=== PATIENT | male | born 1980 | race American Indian/Alaskan Native ===

== ENCOUNTER 2021-12-11 10:19 | Outpatient (CLI) | payer OTHER ==
--- NOTE | 2021-12-11 11:10 | XRay Report ---
Lumbar spine 3 views INDICATION: Back pain FINDINGS: Facet degenerative changes seen throughout. Endplate changes most significant L4-5 and L5-S 1. Minimal anterior listhesis of L4-L5. Visualized sacrum appears normal. No compression fracture. Cervical spine 3 views INDICATION: Neck pain FINDINGS: Alignment appears normal. Endplate changes with anterior posterior disc osteophytes through out. Facet degenerative changes seen throughout. Odontoid appears normal. Signer Name: Smith Hassan MD Signed: 12/11/2021 11:06 AM Workstation Name: [id number]
== END 2021-12-11 10:20 | disposition home or self-care (01) ==
LOC: XRAY 10:19
PROVIDERS: ATTEND Internal Medicine
DX: M47.817 Spondylosis without myelopathy or radiculopathy, lumbosacral region (principal); M47.812 Spondylosis without myelopathy or radiculopathy, cervical region; M25.78 Osteophyte, vertebrae
CPT/HCPCS: 72040; 72100